=== PATIENT | male | born 1980 | race Caucasian/White ===

== ENCOUNTER 2022-06-25 09:40 | Inpatient (IN) | payer BC ==
--- NOTE | 2022-06-25 10:36 | ED ---
General Adult HPI - General Chief complaint: Dizziness Stated complaint: dizziness Time Seen by Provider: 06/25/22 09:45 Source: patient, RN notes reviewed, old records reviewed Mode of arrival: ambulatory Limitations: no limitations - History of Present Illness Initial comments: This is a 42-year-old male who presents emergency department with past medical history significant for recently diagnosed hypertension. Patient has had a 10 day history of feeling like a passout. Patient states it typically occurs with any exertion. Patient states that states last week off from work. Patient states this is his fourth visit to an ER and he seen his primary medical care doctor twice. Patient denies any chest pain shortness of breath or difficulty breathing. Patient has any new back pain. Patient states she doesn't chronic back pain. Patient states normally if he is up and working his back pain slowly gets better with movement throughout the day. Patient states the last week or so his been lying around because he hasn't been working in he doesn't loosen up so is been a little more annoying than normal. Patient states when he starts to exert himself or even walking around the store the day he began to feel lightheaded as if he was going to pass out. Patient states typically if he was out for a few hours he feels considerably better. Patient denies any recent fever chills or cough. Patient denies any abdominal pain. Patient states occasionally when he gets really lightheaded and almost passes out to get some tingling in both of his fingers. - Related Data Home Medications Medication Instructions Recorded Confirmed lisinopriL [Zestril] 10 mg PO DAILY 06/25/22 06/25/22 Allergies Allergy/AdvReac Type Severity Reaction Status Date / Time No Known Allergies Allergy Verified 06/25/22 11:54 Review of Systems ROS Statement: Those systems with pertinent positive or pertinent negative responses have been documented in the HPI. ROS Other: All systems not noted in ROS Statement are negative. Past Medical History Past Medical History: Hypertension History of Any Multi-Drug Resistant Organisms: None Reported Past Surgical History: Orthopedic Surgery Past Psychological History: No Psychological Hx Reported Smoking Status: Current every day smoker Past Alcohol Use History: Occasional Past Drug Use History: None Reported General Exam - General Exam Comments Initial Comments: GENERAL: Patient is well-developed and well-nourished. Patient is nontoxic and well- hydrated and is in mild distress. ENT: Neck is soft and supple. No significant lymphadenopathy is noted. Oropharynx is clear. Moist mucous membranes. Neck has full range of motion without eliciting any pain. EYES: The sclera were anicteric and conjunctiva were pink and moist. Patient has nystagmus but his sister states that he is always had that. Extraocular movements were intact and pupils were equal round and reactive to light. Eyelids were unremarkable. PULMONARY: Unlabored respirations. Good breath sounds bilaterally. No audible rales rhonchi or wheezing was noted. CARDIOVASCULAR: Patient is tachycardic at about 110 beats a minute ABDOMEN: Soft and nontender with normal bowel sounds. SKIN: Skin is clear with no lesions or rashes and otherwise unremarkable. NEUROLOGIC: Patient is alert and oriented x3. Cranial nerves II through XII are grossly intact. Motor and sensory are also intact. Normal speech, volume and content. Symmetrical smile. MUSCULOSKELETAL: Normal extremities with adequate strength and full range of motion. LYMPHATICS: No significant lymphadenopathy is noted PSYCHIATRIC: Normal psychiatric evaluation. Limitations: no limitations Course Vital Signs 06/25/22 06/25/22 09:44 11:41 Temperature 99 F Pulse Rate 100 101 H Respiratory 20 18 Rate Blood Pressure 141/95 O2 Sat by Pulse 98 95 Oximetry Medical Decision Making - Medical Decision Making EKG shows sinus rhythm at 94 bpm MI interval 152 QRS is 82 QT interval 370 QTC is 369. Patient's EKG shows no ST segment elevation or depression. Echo showed no acute abnormality. CT of the chest showed no acute abnormality. This is the patient's fourth visit to an emergency Department in [facility] twice in his primary medical care doctor he just wants to get this problem is also get back to work. Patient states he can't go back to work as every time he gets up and exerts himself well he almost passes out. Was at this point time I did. To admit the patient and get a further workup. I spoke with the patient was given hospital stay agreed to admit the patient admitted the patient wrote admitting orders. - Lab Data Result diagrams: 06/25/22 10:52 06/25/22 10:52 Lab Results 06/25/22 06/25/22 06/25/22 Range/Units 10:52 10:52 10:52 WBC 10.7 H (3.8-10.6) k/uL RBC 5.22 (4.30-5.90) m/uL Hgb 17.1 (13.0-17.5) gm/dL Hct 49.8 (39.0-53.0) % MCV 95.3 (80.0-100.0) fL MCH 32.7 (25.0-35.0) pg MCHC 34.3 (31.0-37.0) g/dL RDW 11.5 (11.5-15.5) % Plt Count 307 (150-450) k/uL MPV 8.1 Neutrophils % 77 % Lymphocytes % 15 % Monocytes % 6 % Eosinophils % 1 % Basophils % 0 % Neutrophils # 8.2 H (1.3-7.7) k/uL Lymphocytes # 1.5 (1.0-4.8) k/uL Monocytes # 0.6 (0-1.0) k/uL Eosinophils # 0.1 (0-0.7) k/uL Basophils # 0.0 (0-0.2) k/uL PT 9.4 (9.0-12.0) sec INR 0.8 (<1.2) APTT 24.9 (22.0-30.0) sec D-Dimer 0.68 H (<0.60) mg/L FEU Sodium 135 L (137-145) mmol/L Potassium 5.3 H (3.5-5.1) mmol/L Chloride 97 L (98-107) mmol/L Carbon Dioxide 25 (22-30) mmol/L Anion Gap 13 mmol/L BUN 12 (9-20) mg/dL Creatinine 0.65 L (0.66-1.25) mg/dL Est GFR (CKD-EPI)AfAm >90 (>60 ml/min/1.73 sqM) Est GFR (CKD-EPI)NonAf >90 (>60 ml/min/1.73 sqM) Glucose 96 (74-99) mg/dL Calcium 9.7 (8.4-10.2) mg/dL Magnesium 2.0 (1.6-2.3) mg/dL Total Bilirubin 0.6 (0.2-1.3) mg/dL AST 24 (17-59) U/L ALT 26 (4-49) U/L Alkaline Phosphatase 106 (38-126) U/L Troponin I (0.000-0.034) ng/mL NT-Pro-B Natriuret Pep pg/mL Total Protein 8.1 (6.3-8.2) g/dL Albumin 4.7 (3.5-5.0) g/dL 06/25/22 06/25/22 Range/Units 10:52 10:52 WBC (3.8-10.6) k/uL RBC (4.30-5.90) m/uL Hgb (13.0-17.5) gm/dL Hct (39.0-53.0) % MCV (80.0-100.0) fL MCH (25.0-35.0) pg MCHC (31.0-37.0) g/dL RDW (11.5-15.5) % Plt Count (150-450) k/uL MPV Neutrophils % % Lymphocytes % % Monocytes % % Eosinophils % % Basophils % % Neutrophils # (1.3-7.7) k/uL Lymphocytes # (1.0-4.8) k/uL Monocytes # (0-1.0) k/uL Eosinophils # (0-0.7) k/uL Basophils # (0-0.2) k/uL PT (9.0-12.0) sec INR (<1.2) APTT (22.0-30.0) sec D-Dimer (<0.60) mg/L FEU Sodium (137-145) mmol/L Potassium (3.5-5.1) mmol/L Chloride (98-107) mmol/L Carbon Dioxide (22-30) mmol/L Anion Gap mmol/L BUN (9-20) mg/dL Creatinine (0.66-1.25) mg/dL Est GFR (CKD-EPI)AfAm (>60 ml/min/1.73 sqM) Est GFR (CKD-EPI)NonAf (>60 ml/min/1.73 sqM) Glucose (74-99) mg/dL Calcium (8.4-10.2) mg/dL Magnesium (1.6-2.3) mg/dL Total Bilirubin (0.2-1.3) mg/dL AST (17-59) U/L ALT (4-49) U/L Alkaline Phosphatase (38-126) U/L Troponin I <0.012 (0.000-0.034) ng/mL NT-Pro-B Natriuret Pep <11 pg/mL Total Protein (6.3-8.2) g/dL Albumin (3.5-5.0) g/dL Disposition Clinical Impression: Near syncope Disposition: ADMITTED IP TO THIS HOSP Referrals: Jose F Vick MD [Primary Care Provider] - 1-2 days Time of Disposition: 13:59
[2022-06-25 11:01] LABS: Basophils % (A) 0 %; Eosinophils # (A) 0.1 k/uL (0-0.7); Eosinophils % (A) 1 %; HCT 49.8 % (39.0-53.0); HGB 17.1 gm/dL (13.0-17.5); Lymphocytes # (A) 1.5 k/uL (1.0-4.8); Lymphocytes % (A) 15 %; MCH 32.7 pg (25.0-35.0); MCHC 34.3 g/dL (31.0-37.0); MCV 95.3 fL (80.0-100.0); Mean Platelet Volume 8.1; Monocytes # (A) 0.6 k/uL (0-1.0); Monocytes % (A) 6 %; Neutrophils # (A) 8.2 k/uL (1.3-7.7); Neutrophils % (A) 77 %; Platelet Count 307 k/uL (150-450); RBC 5.22 m/uL (4.30-5.90); RDW 11.5 % (11.5-15.5); WBC 10.7 k/uL (3.8-10.6)
[2022-06-25 11:14] LABS: ALT 26 U/L (4-49); AST 24 U/L (17-59); African American GFR (CKD) >90 (>60 ml/min/1.73 sqM); Albumin 4.7 g/dL (3.5-5.0); Alkaline Phosphatase 106 U/L (38-126); Anion Gap 13 mmol/L; Blood Urea Nitrogen 12 mg/dL (9-20); Calcium 9.7 mg/dL (8.4-10.2); Carbon Dioxide 25 mmol/L (22-30); Chloride 97 mmol/L (98-107); Glucose 96 mg/dL (74-99); Non-African American GFR(CKD) >90 (>60 ml/min/1.73 sqM); Potassium 5.3 mmol/L (3.5-5.1); Sodium 135 mmol/L (137-145); Total Bilirubin 0.6 mg/dL (0.2-1.3); Total Protein 8.1 g/dL (6.3-8.2)
[2022-06-25 11:16] LABS: INR 0.8 (<1.2); Partial Thromboplastin Time 24.9 sec (22.0-30.0); Prothrombin Time 9.4 sec (9.0-12.0)
--- NOTE | 2022-06-25 11:19 | XR ---
EXAMINATION TYPE: XR chest 2V DATE OF EXAM: 06/25/2022 COMPARISON: NONE HISTORY: Chest pain TECHNIQUE: Frontal and lateral views of the chest are obtained. FINDINGS: There is no focal air space opacity. No evidence for pneumothorax. No pleural effusion. The cardiac silhouette size is within normal limits. The osseous structures are grossly intact. IMPRESSION: 1. No acute cardiopulmonary process.
--- NOTE | 2022-06-25 12:37 | CT ---
EXAMINATION TYPE: CT chest angio for PE DATE OF EXAM: 06/25/2022 COMPARISON: None HISTORY: Near syncope, dizziness CT DLP: 393 mGycm CONTRAST: CT chest with contrast and 3D reconstruction with MIP imaging is performed with IV Contrast, patient injected with 100 mL of Isovue 370. Contrast-enhanced CT of the chest was performed through the course of the pulmonary arteries with maryse g and mediastinal window settings submitted. 3D reconstruction with MIP imaging was also performed. PULMONARY ARTERIES: The pulmonary arteries and their major tributaries are patent. I do not see maribell dence for sizable filling defect to suggest pulmonary embolic process. LUNGS: The lungs are clear and free of infiltrate. No evidence for atelectasis. No pulmonary nodule or mass is detected. No pleural effusion. MEDIASTINUM: Thoracic aorta is of normal caliber. The heart is mildly enlarged. No evidence for med iastinal mass. No mediastinal lymph nodes greater than 1cm. HILAR STRUCTURES: No evidence for mass. No hilar lymph nodes greater than 1 cm. UPPER ABDOMEN: No significant abnormality is seen. IMPRESSION: 1. No evidence for Pulmonary embolism at this time.
[2022-06-25] MEDS ORDERED: SODIUM CHLORIDE 0.9% 1,000 ML IV ONE (13:59)
--- NOTE | 2022-06-25 14:28 | P.HPIM ---
History of Present Illness Patient is a pleasant 42-year-old male came in with complaints of dizziness which is lightheadedness patient denied any room spinning. Patient had this lightheadedness on and off multiple episodes. Lightheadedness is not affected b y position change but whenever he is lightheaded when he rests for 2 hours patient gets better. Patient the started having these symptoms 10 days ago had multiple ER visits and had no significant improvement. Echocardiogram was ordered patient is being admitted to [facility] floor patient had a CT angios the chest which did not show any significant abnormality. Patient denied any shortness of breath patient was also complaining of tingling numbness in both hands as well as tingling in the right foot the symptoms started before his lightheadedness. Patient denied any focal weakness. Patient is complaining of chronic back pain which is bit worse than usual patient was also complaining of neck pain. Patient is concerned that his dizziness is limiting his regular work and his usual regular activities. Patient was started on lisinopril about 4 days ago because of uncontrolled hypertension patient has mildly elevated potassium to 5.3. REVIEW OF SYSTEMS: CONSTITUTIONAL: No fever, no malaise, no fatigue. HEENT: No recent visual problems or hearing problems. Denied any sore throat. CARDIOVASCULAR: No chest pain, orthopnea, PND, no palpitations, no syncope. PULMONARY: No shortness of breath, no cough, no hemoptysis. GASTROINTESTINAL: No diarrhea, no nausea, no vomiting, no abdominal pain. NEUROLOGICAL: No headaches, no weakness, no numbness. HEMATOLOGICAL: Denies any bleeding or petechiae. GENITOURINARY: Denies any burning micturition, frequency, or urgency. MUSCULOSKELETAL/RHEUMATOLOGICAL: Denies any joint pain, swelling, or any muscle pain. ENDOCRINE: Denies any polyuria or polydipsia. The rest of the 14-point review of systems is negative. PHYSICAL EXAMINATION: GENERAL: The patient is alert and oriented x3, not in any acute distress. Well developed, well nourished. HEENT: Pupils are round and equally reacting to light. EOMI. No scleral icterus. No conjunctival pallor. Normocephalic, atraumatic. No pharyngeal erythema. No thyromegaly. CARDIOVASCULAR: S1 and S2 present. No murmurs, rubs, or gallops. PULMONARY: Chest is clear to auscultation, no wheezing or crackles. ABDOMEN: Soft, nontender, nondistended, normoactive bowel sounds. No palpable organomegaly. MUSCULOSKELETAL: No joint swelling or deformity. EXTREMITIES: No cyanosis, clubbing, or pedal edema. Patient has deformity of the right leg secondary to an accident when he was a kid. NEUROLOGICAL: Gross neurological examination did not reveal any focal deficits. SKIN: No rashes. Assessment and plan -Dizziness/lightheadedness patient will undergo workup with echocardiogram we'll [place] in a carotid Doppler can be related to cervical degenerative disc disease because of which I'll obtain x-ray of the neck considering his symptoms of low back pain and tingling in the right foot I'll also obtain x-ray of lower back. As per request from my patient and family will consult neurology and cardiology. Patient will be monitored on [facility]. -Hypertension -Chronic low back pain, cervical as well as thoracolumbar back pain with some radicular symptoms. Physical therapy activation therapy consultation pain medications. -Nicotine use: Counseling was provided DVT prophylaxis: Lovenox Past Medical History Past Medical History: Hypertension History of Any Multi-Drug Resistant Organisms: None Reported Past Surgical History: Orthopedic Surgery Past Psychological History: No Psychological Hx Reported Smoking Status: Current every day smoker Past Alcohol Use History: Occasional Past Drug Use History: None Reported Medications and Allergies Home Medications Medication Instructions Recorded Confirmed Type lisinopriL [Zestril] 10 mg PO DAILY 06/25/22 06/25/22 History Allergies Allergy/AdvReac Type Severity Reaction Status Date / Time No Known Allergies Allergy Verified 06/25/22 11:54 Physical Exam Vitals: Vital Signs Temp Pulse Resp BP Pulse Ox 06/25/22 14:00 100 18 120/81 97 06/25/22 12:00 101 H 18 125/84 97 06/25/22 11:41 101 H 18 95 06/25/22 09:44 99 F 100 20 141/95 98 Intake and Output 06/24/22 06/25/22 06/25/22 22:59 06:59 14:59 Other: Weight 86.183 kg Results CBC & Chem 7: 06/25/22 10:52 06/25/22 10:52 Labs: Abnormal Lab Results - Last 24 Hours (Table) 10/24/22 10/24/22 10/24/22 Range/Units 10:52 10:52 10:52 WBC 10.7 H (3.8-10.6) k/uL Neutrophils # 8.2 H (1.3-7.7) k/uL D-Dimer 0.68 H (<0.60) mg/L FEU Sodium 135 L (137-145) mmol/L Potassium 5.3 H (3.5-5.1) mmol/L Chloride 97 L (98-107) mmol/L Creatinine 0.65 L (0.66-1.25) mg/dL
[2022-06-25] MEDS: HYDROmorphone 0.5 MG/0.5 ML SYRINGE IVP PRN ×2 (14:39→23:34)
--- NOTE | 2022-06-25 15:19 | XR ---
EXAMINATION TYPE: XR lumbar spine 2 or 3V DATE OF EXAM: 06/25/2022 3:01 PM INDICATION: Patient age:Male; 42 years old; Reason for study: Low back pain; COMPARISON: None TECHNIQUE: Frontal, lateral and coned in L5-S1 lateral views of the spine. FINDINGS: There is grade 1 borderline grade 2 anterolisthesis of L5 on S1. Suspected bilateral spondy lolysis. Mild osteophyte formation at throughout the spine. No evidence of any acute osseous patholog y. No evidence of loss of vertebral body height is seen. No significant degeneration changes through out the spine. IMPRESSION: 1. No acute fracture. 2. Minimal degeneration changes of the spine with grade 1, borderline grade 2 anterolisthesis of L5 on S1. There are suspected spondylolysis.
--- NOTE | 2022-06-25 15:23 | XR ---
EXAMINATION TYPE: XR cervical spine w flex/ext DATE OF EXAM: 06/25/2022 TECHNIQUE: Frontal, lateral, oblique, swimmers, and open mouth view of the cervical spine are obtaine d. Extension into flexion views are obtained. HISTORY: Neck pain COMPARISON: None FINDINGS: The cervical spine is visualized in its entirety from C1 thru the top of T1 level, it is s atisfactory in alignment without evidence of acute fracture or dislocation. There is normal alignmen t at flexion and extension. The pre-vertebral soft tissue appears within normal limits. The C1-C2 ar ticulation is within normal limits on the open mouth view. The oblique images are within normal limi ts. IMPRESSION: No acute fracture or dislocation is seen in the cervical spine.
--- NOTE | 2022-06-25 15:55 | US ---
EXAMINATION TYPE: US carotid duplex BILAT DATE OF EXAM: 06/25/2022 COMPARISON: NONE CLINICAL HISTORY: CVA. dizziness. No hx tia. Patient states being on HTN meds x 3 days. TECHNIQUE: Carotid duplex ultrasound examination. Indirect Doppler criteria was utilized. FINDINGS: EXAM MEASUREMENTS: RIGHT: Peak Systolic Velocity (PSV) cm/sec ----- Right CCA: 92.9 ----- Right ICA: 95.8 ----- Right ECA: 84.2 ICA/CCA ratio: 1.0 RIGHT: End Diastole cm/sec ----- Right CCA: 17.3 ----- Right ICA: 14.4 ----- Right ECA: 14.4 LEFT: Peak Systolic Velocity (PSV) cm/sec ----- Left CCA: 96.8 ----- Left ICA: 95.6 ----- Left ECA: 125.8 ICA/CCA ratio: 1.0 LEFT: End Diastole cm/sec ----- Left CCA: 22.5 ----- Left ICA: 34.8 ----- Left ECA: 17.6 VERTEBRALS (direction of flow): Right Vertebral: Antegrade Left Vertebral: Antegrade Rhythm: Normal RAIL TRANSPORTATION TABELER NOTES: No significant velocity elevations, plaque or stenosis. IMPRESSION: Less than 50% stenosis of the bilateral carotid bifurcations. Criteria for Assigning % of Stenosis / Diameter reduction (Estimation based on the indirect measurements of the internal carotid artery velocities (ICA PSV). 1. Normal (no stenosis)=ICA PSV < 125 cm/s: ratio < 2.0: ICA EDV<40 cm/s. 2. Less than 50% stenosis=ICA PSV < 125 cm/s: ratio < 2.0: ICA EDV<40 cm/s. 3. 50 to 69% stenosis=ICA PSV of 125 to 230 cm/s: ration 2.0 ? 4.0: ICA EDV 40-100 cm/s. 4. Greater than 70% stenosis to near occlusion= ICA PSV > 230 cm/s: ratio > 4.0: ICA EDV > 100 cm/s. 5. Near occlusion= ICA PSV velocities may be low or undetectable: variable ratio and ICA EDV. 6. Total occlusion=unable to detect flow.
--- NOTE | 2022-06-25 16:21 | P.CNNES ---
History of Present Illness Consult date: 06/25/22 Requesting physician: Ro Lenz Reason for Consult: dizziness History of Present Illness: This is a 6-year-old gentleman with history of hypertension presented emergency department because of episode of feeling lightheaded, numbness. Patient is accompanied with his sister who provided some of the history. It seems for the last 10 days patient is a having recurrent episode of he describes his head feels somewhat off then he feels lightheaded that he noticed numbness in both hands left hand more than the right and numbness in the right leg then he feels he is having this anxious at tremor but denies any jerk in or tonic-clonic activity that he feels off and for the most part he that it subsides after the him going to sleep. He denies any loss of consciousness, urinary bowel incontinence. He feels like he is about to pass out with these episodes. These episodes happened after prolonged period of walk-in and denies that happened from sitting to standing position right away. He has minimal episodes that he felt lightheaded going from sitting to standing before the most part those episodes happened after prolonged walking. According to the patient and sister wall that taking care of his bills about 34 days ago he fell off and not himself and heme head to the blink his eyes multiple times since he felt his eyes were dry. Patient was invalid by 2 different hospitals one of him was [facility] in [place] and another was [facility]. He had CT head which but was told everything looked normal. He denies any history of seizure. Denies any focal weakness, numbness. He has ongoing lower back pain. Of note patient drinks about 6-8 cans of beers 12 ounces daily. He smokes about close to 2 packs and that would last an entire week. Denies any illicit drug use. He denies any history of seizures or family history of seizures. Review of Systems Review of system: The 12 point system was reviewed and apparent positive and negative per HPI. Past Medical History Past Medical History: Hypertension History of Any Multi-Drug Resistant Organisms: None Reported Past Surgical History: Orthopedic Surgery Past Psychological History: No Psychological Hx Reported Smoking Status: Current every day smoker Past Alcohol Use History: Occasional Past Drug Use History: None Reported Medications and Allergies Home Medications Medication Instructions Recorded Confirmed Type lisinopriL [Zestril] 10 mg PO DAILY 06/25/22 06/25/22 History Allergies Allergy/AdvReac Type Severity Reaction Status Date / Time No Known Allergies Allergy Verified 06/25/22 11:54 Physical Examination - Vital Signs Vital Signs: Vital Signs Temp Pulse Resp BP Pulse Ox 06/25/22 14:00 100 18 120/81 97 06/25/22 12:00 101 H 18 125/84 97 06/25/22 11:41 101 H 18 95 06/25/22 09:44 99 F 100 20 141/95 98 Intake and Output 06/25/22 06/25/22 06/25/22 06:59 14:59 22:59 Other: Weight 86.183 kg GENERAL: The patient is lying in bed and is not in acute distress. CHEST: The heart rate is regular rate rhythm. No murmurs to auscultation. LUNG: Clear to auscultation bilaterally no wheezing noted throughout. Not labored breathing. ABDOMEN/GI: Bowel sounds present in all 4 quadrants. No tenderness to palpation throughout. NEUROLOGICAL: Higher mental function: The patient is awake, alert, oriented to self, place and time. Patient is following commands. No aphasia and no neglect. Cranial nerves: The pupils are round, equal and reactive to light and accommodation. Visual headley are full to confrontation throughout. Extraocular movement is rotatory nystagmus looking to right and left (old and was told due to eye issue). Facial sensation is normal to touch throughout. The facial strength is normal throughout. Hearing is normal bilaterally to hand rub. Tongue is midline and moved [id number] without any difficulty. No dysarthria is noted. Shoulder shrug is normal bilaterally. Motor: The strength is 5 over 5 throughout. Normal tone and bulk. 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 Cerebellum: Normal finger to nose bilaterally. Sensation: Sensation is normal to touch throughout. Reflexes (right/left) 1+ uppers while lowers are 2+. Plantars is mute over the left and right toe is amputated. Results - Laboratory Findings CBC and BMP: 06/25/22 10:52 06/25/22 10:52 Abnormal Lab Findings: Abnormal Labs 06/25/22 06/25/22 06/25/22 10:52 10:52 10:52 WBC 10.7 H Neutrophils # 8.2 H D-Dimer 0.68 H Sodium 135 L Potassium 5.3 H Chloride 97 L Creatinine 0.65 L Assessment and Plan Assessment: Recurrent transient episodes of feeling lightheadedness, numbness of both hands left more than right, right foot numbness and feeling off for the past 10 days: Unknown exact etiology. Rule out ?underlying seizure. Hypertension Alcohol use (drinks 6-8 beers daily) Tobacco use Plan: I ordered routine EEG. Ordered MRI Brain w/ and w/o (has metal in left leg, so unsure if will be completed). If not will repeat CT head (had at different facilities). Carotid duplex, Echo and orthostatic vitals are ordered by primary and ED team. Cardiology team is consulted. If all work-up is negative and patient continues to have symptoms then recommend prolonged ambulatory EEG or even epilepsy monitoring unit to capture episodes to rule out possible underlying seizure. Patient was counseled on alcohol and tobacco cessation. Started on thiamine 100mg daily and folic acid 1mg daily because of his alcohol use. Will defer the rest of medical management to primary team. Recommend patient to follow-up with neurologist as outpatient within 1-2 weeks as outpatient. The plan is discussed with patient and his sister (who is at bedside). Thank you for the consultation. Jose Cruz M.D. Neuro-Hospitalist Time with Patient: Greater than 30
[2022-06-25] MEDS: THIAMINE 100 MG TAB PO SCH (17:11)
--- NOTE | 2022-06-25 18:06 | CA ---
Transthoracic Echo Report Name: Luis Higginbotham Age: 42 Gender: M : 1980 Exam Date: 06/25/2022 11:47 Exam Location: [facility] Ht (in): 64 Wt (lb): 190 Ordering Physician: Sean Curtis MD Attending/Referring Phys: Window Cutter Kianna Batista RDCS Procedure CPT: Indications: near syncope Cardiac Hx: Technical Quality: Good Contrast 1: Total Dose (mL): Contrast 2: Total Dose (mL): MEASUREMENTS (Male / Female) Normal Values 2D ECHO LV Diastolic Diameter PLAX 4.1 cm 4.2 - 5.9 / 3.9 - 5.3 cm LV Systolic Diameter PLAX 2.8 cm IVS Diastolic Thickness 1.0 cm 0.6 - 1.0 / 0.6 - 0.9 cm LVPW Diastolic Thickness 1.0 cm 0.6 - 1.0 / 0.6 - 0.9 cm LV Relative Wall Thickness 0.5 RV Internal Dim ED PLAX 3.1 cm LA Systolic Diameter LX 3.2 cm 3.0 - 4.0 / 2.7 - 3.8 cm LA Volume 53.8 cm??? 18 - 58 / 22 - 52 cm??? M-MODE Aortic Root Diameter MM 3.7 cm MV E Point Septal Separation 0.5 cm AV Cusp Separation MM 2.5 cm DOPPLER AV Peak Velocity 129.8 cm/s AV Peak Gradient 6.7 mmHg MV Area PHT 3.1 cm??? Mitral E Point Velocity 71.2 cm/s Mitral A Point Velocity 78.5 cm/s Mitral E to A Ratio 0.9 MV Deceleration Time 248.5 ms MV E' Velocity 9.4 cm/s Mitral E to MV E' Ratio 7.6 TR Peak Velocity 234.2 cm/s TR Peak Gradient 21.9 mmHg Right Ventricular Systolic Press 26.9 mmHg FINDINGS Left Ventricle Left ventricular ejection fraction is estimated at 60-65 %. Left ventricular cavity size at the upper limits of normal. Left ventricular wall thickness normal. Right Ventricle Normal right ventricular size and function. Right ventricular systolic pressure within normal limits. Right Atrium Normal right atrial size. Left Atrium Normal left atrial size. No evidence for an atrial septal defect. Mitral Valve Structurally normal mitral valve. No mitral stenosis, regurgitation or prolapse. Aortic Valve Trileaflet aortic valve. No aortic valve stenosis or regurgitation. Tricuspid Valve Mild tricuspid regurgitation. Pulmonic Valve Structurally normal pulmonic valve. Pericardium Normal pericardium. No pericardial effusion. Aorta Normal size aortic root and proximal ascending aorta. CONCLUSIONS Preserved LV systolic function Previewed by: Dr. Kai Aguilera MD (Electronically Signed) Final Date: 25 June 2022 18:04
[2022-06-25] MEDS ORDERED: KETOROLAC 15 MG/ML 1 ML VIAL IVP PRN (18:36)
[2022-06-25] MEDS: PANTOPRAZOLE 40 MG TABLET PO SCH (23:34)
[2022-06-26] MEDS: FOLIC ACID 1 MG TAB PO SCH (07:35)
[2022-06-26] MEDS: PANTOPRAZOLE 40 MG TABLET PO SCH ×2 (07:35→20:17)
[2022-06-26] MEDS: THIAMINE 100 MG TAB PO SCH (07:35)
[2022-06-26] MEDS: HYDROmorphone 0.5 MG/0.5 ML SYRINGE IVP PRN ×2 (07:40→18:01)
[2022-06-26] MEDS ORDERED: SODIUM CHLORIDE 0.9% 1,000 ML IV SCH (09:45)
--- NOTE | 2022-06-26 11:30 | P.CRDCN ---
History of Present Illness History of present illness: HISTORY OF PRESENT ILLNESS: This is a 42-year-old male with a past medical history significant for hypertension. 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 We have been asked to see the patient in consultation for near syncope. Patient examined at the bedside. Patient reports about 10 days ago he started having feelings of dizziness and lightheadedness. He states after he begins to feel dizzy that his right foot starts going numb. He reports that his hands get shaky and they feel cold and sweaty. He reports his hands then begin to feel tingly and states his left hand is usually worse than his right hand. He states he keeps working his symptoms will get worse. He reports if he lays down than his symptoms usually get better. He reports these episodes have been lasting for 2-3 hours. He states the first time this happened he took himself to the ground because he felt as though he was going to pass out. He reports he has never had an actual syncopal episode. * EKG reveals sinus mechanism with no signs of acute ischemia * Chest xray negative for acute process * Chest CTA negative for PE * Laboratory data: WBC 10.7. Hemoglobin 17.1. Platelet count 307. D-dimer 0.68. Sodium 135. Potassium 5.3. BUN 12. Creatinine 0.65. ProBNP 11. Troponin negative 1. * Current home cardiac medications include lisinopril 10 mg daily * Echocardiogram obtained revealing ejection fraction 60-65% with mild TR REVIEW OF SYSTEMS: At the time of my exam: CONSTITUTIONAL: Denies fever or chills. HEENT: Denies blurred vision, vision changes, or eye pain. Denies hemoptysis CARDIOVASCULAR: Denies chest pain. Denies orthopnea. Denies PND. Denies palpitations RESPIRATORY: Denies shortness of breath. GASTROINTESTINAL: Denies abdominal pain. Denies nausea or vomiting. HEMATOLOGIC: Denies bleeding disorders. GENITOURINARY: Denies any blood in urine. SKIN: Denies pruitis. Denies rash. PHYSICAL EXAM: VITAL SIGNS: Reviewed. GENERAL: Well-developed in no acute distress. HEENT: Head is normocephalic. Pupils are equal, round. Sclerae anicteric. Mucous membranes of the mouth are moist. Neck supple. No JVD or thyromegaly LUNGS: Respirations even and unlabored. Lungs essentially clear to auscultation bilaterally. HEART: Regular rate and rhythm. S1 and S2 heard. ABDOMEN: Soft. Nondistended. Nontender. EXTREMITIES: Normal range of motion. No clubbing or cyanosis. Peripheral pulses intact. No lower extremity edema NEUROLOGIC: Awake and alert. Oriented x 3. ASSESSMENT: Near syncope Hypertension Hyperkalemia Daily alcohol use Nicotine dependence PLAN: Recommend abstinence from alcohol Smoking cessation recommended Continue to monitor blood pressure Patient to undergo tilt table testing today Further recommendations pending patient's course Nurse practitioner note has been reviewed by physician. Signing provider agrees with the documented findings, assessment, and plan of care. Past Medical History Past Medical History: Hypertension History of Any Multi-Drug Resistant Organisms: None Reported Past Surgical History: Orthopedic Surgery Past Psychological History: No Psychological Hx Reported Smoking Status: Current some day smoker Past Alcohol Use History: Occasional Past Drug Use History: None Reported Medications and Allergies Home Medications Medication Instructions Recorded Confirmed Type lisinopriL [Zestril] 10 mg PO DAILY 06/25/22 06/25/22 History Allergies Allergy/AdvReac Type Severity Reaction Status Date / Time No Known Allergies Allergy Verified 06/25/22 11:54 Physical Exam Vitals: Vital Signs Temp Pulse Pulse Resp BP BP Pulse Ox 06/26/22 08:00 97.4 F L 78 16 123/77 97 06/26/22 07:30 78 06/26/22 02:00 98.1 F 78 16 111/72 96 06/25/22 23:36 79 17 06/25/22 23:16 98.5 F 79 17 125/80 97 06/25/22 18:27 87 18 127/82 96 06/25/22 17:00 106 H 18 130/86 97 06/25/22 16:00 102 H 18 126/80 97 06/25/22 14:00 100 18 120/81 97 06/25/22 12:00 101 H 18 125/84 97 06/25/22 11:41 101 H 18 95 06/25/22 09:44 99 F 100 20 141/95 98 Intake and Output 06/25/22 06/26/22 06/26/22 22:59 06:59 14:59 Intake Total 450 Balance 450 Intake: Intake, IV Titration 450 Amount Sodium Chloride 0.9% 1, 450 000 ml @ 75 mls/hr IV . [id number] ONE Rx#:[id number] Other: Voiding Method Toilet Weight 85.3 kg Results 06/25/22 10:52 06/25/22 10:52 Cardiac Enzymes 06/25/22 06/25/22 Range/Units 10:52 10:52 AST 24 (17-59) U/L Troponin I <0.012 (0.000-0.034) ng/mL Coagulation 06/25/22 Range/Units 10:52 PT 9.4 (9.0-12.0) sec APTT 24.9 (22.0-30.0) sec CBC 06/25/22 Range/Units 10:52 WBC 10.7 H (3.8-10.6) k/uL RBC 5.22 (4.30-5.90) m/uL Hgb 17.1 (13.0-17.5) gm/dL Hct 49.8 (39.0-53.0) % Plt Count 307 (150-450) k/uL Comprehensive Metabolic Panel 06/25/22 Range/Units 10:52 Sodium 135 L (137-145) mmol/L Potassium 5.3 H (3.5-5.1) mmol/L Chloride 97 L (98-107) mmol/L Carbon Dioxide 25 (22-30) mmol/L BUN 12 (9-20) mg/dL Creatinine 0.65 L (0.66-1.25) mg/dL Glucose 96 (74-99) mg/dL Calcium 9.7 (8.4-10.2) mg/dL AST 24 (17-59) U/L ALT 26 (4-49) U/L Alkaline Phosphatase 106 (38-126) U/L Total Protein 8.1 (6.3-8.2) g/dL Albumin 4.7 (3.5-5.0) g/dL Current Medications Generic Name Dose Route Start Last Admin Trade Name Freq PRN Reason Stop Dose Admin Folic Acid 1 mg 06/26/22 09:00 06/26/22 07:35 Folic Acid 1 Mg Tab PO 1 mg DAILY ZANE Administration Hydromorphone HCl 0.5 mg 06/25/22 14:24 06/26/22 07:40 Hydromorphone 0.5 Mg/0.5 Ml Syringe IVP 0.5 mg Q6HR PRN Administration Pain Ketorolac Tromethamine 15 mg 06/25/22 18:36 06/25/22 18:40 Ketorolac 15 Mg/Ml 1 Ml Vial IVP 06/28/22 18:36 15 mg Q6HR PRN Administration Mild to Moderate Pain Pantoprazole Sodium 40 mg 06/25/22 21:00 06/26/22 07:35 Pantoprazole 40 Mg Tablet PO 40 mg BID ZANE Administration Thiamine HCl 100 mg 06/25/22 16:15 06/26/22 07:35 Thiamine 100 Mg Tab PO 100 mg DAILY ZANE Administration Intake and Output 06/25/22 06/26/22 06/26/22 22:59 06:59 14:59 Intake Total 450 Balance 450 Intake: Intake, IV Titration 450 Amount Sodium Chloride 0.9% 1, 450 000 ml @ 75 mls/hr IV . [id number] ONE Rx#:[id number] Other: Voiding Method Toilet Weight 85.3 kg 06/25/22 10:52 06/25/22 10:52
[2022-06-26 11:33] LABS: African American GFR (CKD) 129.5 (60.0-200.0); Anion Gap 6.5 mmol/L (10.00-18.00); BUN/Creat Ratio 16.88 Ratio (12.00-20.00); Blood Urea Nitrogen 13.5 mg/dL (9.0-27.0); Calcium 9.1 mg/dL (8.7-10.3); Carbon Dioxide 25.5 mmol/L (20.0-27.5); Non-African American GFR(CKD) 111.7 (60.0-200.0); Potassium 5.2 mmol/L (3.5-5.5)
--- NOTE | 2022-06-26 12:04 | P.PN ---
Subjective Progress Note Date: 06/26/22 The patient is seen at bedside and feels he is doing better since he has been in the hospital. Denies any further dizziness or presyncopal episodes or confusion. Denies any new neurological issues. Objective - Vital Signs Vital signs: Vital Signs Temp 97.4 F L 06/26/22 08:00 Pulse 78 06/26/22 08:00 Resp 16 06/26/22 08:00 BP 123/77 06/26/22 08:00 Pulse Ox 97 06/26/22 08:00 FiO2 Intake & Output 06/25/22 06/26/22 06/26/22 18:59 06:59 18:59 Intake Total 450 Balance 450 Weight 86.183 kg 85.3 kg Intake: Intake, IV Titration 450 Amount Sodium Chloride 0.9% 1, 450 000 ml @ 75 mls/hr IV . [id number] ONE Rx#:[id number] Other: Voiding Method Toilet # Voids 1 - Exam GENERAL: The patient is lying in bed and is not in acute distress. NEUROLOGICAL: Higher mental function: The patient is awake, alert, oriented to self, place and time. Patient is following commands. No aphasia and no neglect. Cranial nerves: The pupils are round, equal and reactive to light and accommodation. Visual headley are full to confrontation throughout. Extraocular movement is rotatory nystagmus looking to right and left (old and was told due to eye issue). Facial sensation is normal to touch throughout. The facial strength is normal throughout. Hearing is normal bilaterally to hand rub. Tongue is midline and moved [id number] without any difficulty. No dysarthria is noted. Shoulder shrug is normal bilaterally. Motor: The strength is 5 over 5 throughout. Normal tone and bulk. 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 Cerebellum: Normal finger to nose bilaterally. Sensation: Sensation is normal to touch throughout. Reflexes (right/left) 1+ uppers while lowers are 2+. Plantars is mute over the left and right toe is amputated. SOME OF THE WORK-UP DURING THIS HOSPITAL VISIT CONSISTED OF: Carotid duplex was reported as less than 50% stenosis of bilateral carotid bifurcation. 2-D echo was reported as preserved left ventricle systolic function. Ejection fraction of 66 5%. No evidence of left atrial septal defect. Normal left atrial size. - Labs CBC & Chem 7: 06/25/22 10:52 06/26/22 07:15 Labs: Abnormal Lab Results - Last 24 Hours (Table) 06/26/22 Range/Units 07:15 Anion Gap 6.50 L (10.00-18.00) mmol/L Assessment and Plan Assessment: Recurrent transient episodes of feeling lightheadedness, numbness of both hands left more than right, right foot numbness and feeling off for the past 10 days: Unknown exact etiology. Rule out ?underlying seizure. Hypertension Alcohol use (drinks 6-8 beers daily) Tobacco use Plan: Pending routine EEG to rule out any underlying seizure or discharges for his reported episodes of confusion.. Pending MRI Brain w/ and w/o (has metal in left leg, so unsure if will be completed). If not will repeat CT head (had at different facilities). Pending orthostatic vitals are ordered by primary and ED team. Cardiology team is consulted and planning for tilt table test. If all work-up is negative and patient continues to have symptoms then recommend prolonged ambulatory EEG or even epilepsy monitoring unit to capture episodes to rule out possible underlying seizure. Patient was counseled on alcohol and tobacco cessation. Started on thiamine 100mg daily and folic acid 1mg daily because of his alcohol use. Will defer the rest of medical management to primary team. Recommend patient to follow-up with neurologist as outpatient within 1-2 weeks as outpatient. The plan is discussed with patient and his nurse. Jose Cruz M.D. Neuro-Hospitalist Time with Patient: Less than 30
--- NOTE | 2022-06-26 15:10 | P.PN ---
Subjective Progress Note Date: 06/26/22 Patient is a pleasant 42-year-old male came in with complaints of dizziness which is lightheadedness patient denied any room spinning. Patient had this lightheadedness on and off multiple episodes. Lightheadedness is not affected by position change but whenever he is lightheaded when he rests for 2 hours patient gets better. Patient the started having these symptoms 10 days ago had multiple ER visits and had no significant improvement. Echocardiogram was ordered patient is being admitted to personnel monitor floor patient had a CT angios the chest which did not show any significant abnormality. Patient denied any shortness of breath patient was also complaining of tingling numbness in both hands as well as tingling in the right foot the symptoms started before his lightheadedness. Patient denied any focal weakness. Patient is complaining of chronic back pain which is bit worse than usual patient was also complaining of neck pain. Patient is concerned that his dizziness is limiting his regular work and his usual regular activities. Patient was started on lisinopril about 4 days ago because of uncontrolled hypertension patient has mildly elevated potassium to 5.3. 06/26/2022 Patient is seen and evaluated and follow-up with neurology following scheduled to undergo MRI and EEG. Plan is for tilt table test per cardiology with cardiology following closely. Recommend orthostatics and close monitoring for any signs of withdrawal. Patient reports he does drink 6-8 beers daily and will add CIWA protocol if needed. Patient currently not withdrawing. Patient with reports of dizziness that he feels is improved and has been up and walking around the room. Patient is tolerating diet with no reports of nausea or vomiting noted. Will await tilt table report. Patient initially scheduled for MRI although there is metal noted in the left leg and further investigation being done by radiology. Possible MRI this afternoon. Patient is afebrile and current orthostatics are negative. Patient denies any chest pain or palpitations. Blood pressure medication currently on hold. Review of systems: Constitutional: No reports of fatigue, fever, or chills Cardiovascular: No reports of chest pain or palpitations Respiratory: No reports of shortness of breath or cough GI: No reports of nausea, vomiting, or diarrhea : No reports of dysuria or retention Neurovascular: No reports of weakness or numbness All medications have been reviewed Active Medications Folic Acid (Folic Acid 1 Mg Tab) 1 mg PO DAILY ZANE Last Admin: 06/26/22 07:35 Dose: 1 mg Hydromorphone HCl (Hydromorphone 0.5 Mg/0.5 Ml Syringe) 0.5 mg IVP Q6HR PRN PRN Reason: Pain Last Admin: 06/26/22 07:40 Dose: 0.5 mg Sodium Chloride (Saline 0.9%) 1,000 mls @ 20 mls/hr IV .Q24H [facility] Last Admin: 06/26/22 10:59 Dose: Not Given Ketorolac Tromethamine (Ketorolac 15 Mg/Ml 1 Ml Vial) 15 mg IVP Q6HR PRN PRN Reason: Mild to Moderate Pain Stop: 06/28/22 18:36 Last Admin: 06/25/22 18:40 Dose: 15 mg Pantoprazole Sodium (Pantoprazole 40 Mg Tablet) 40 mg PO BID [facility] Last Admin: 06/26/22 07:35 Dose: 40 mg Thiamine HCl (Thiamine 100 Mg Tab) 100 mg PO DAILY [facility] Last Admin: 06/26/22 07:35 Dose: 100 mg PHYSICAL EXAMINATION: GENERAL: The patient is alert and oriented x3, not in any acute distress. Well developed, well nourished. HEENT: Pupils are round and equally reacting to light. EOMI. No scleral icterus. No conjunctival pallor. Normocephalic, atraumatic. No pharyngeal erythema. No thyromegaly. Strabismus noticed on exam CARDIOVASCULAR: S1 and S2 present. No murmurs, rubs, or gallops. PULMONARY: Chest is clear to auscultation, no wheezing or crackles. ABDOMEN: Soft, nontender, nondistended, normoactive bowel sounds. No palpable organomegaly. MUSCULOSKELETAL: No joint swelling or deformity. EXTREMITIES: No cyanosis, clubbing, or pedal edema. Patient has deformity of the right leg secondary to an accident when he was a kid. NEUROLOGICAL: Gross neurological examination did not reveal any focal deficits. SKIN: No rashes. Assessment: -Dizziness/lightheadedness can be related to cervical degenerative disc disease. patient currently undergoing neurological evaluation including MRI and EEG. Patient will be monitored on personnel monitor. -Hypertension -Chronic low back pain, cervical as well as thoracolumbar back pain with some radicular symptoms. -Nicotine use: Counseling was provided -History of daily EtOH use -DVT prophylaxis: Lovenox Plan: Patient is undergoing EEG and MRI of the brain with neurology following. Cardiology following as well the patient will undergo tilt table test today Patient does admit to drinking 6-8 beers daily although not currently withdrawing, recommendable closely monitor for any signs of alcohol withdrawal and will initiate CIWA protocol if necessary PT/OT therapy to follow Encouraged increased activity as tolerated Encouraged oral intake Currently holding lisinopril. Will follow-up with repeat labs in the a.m. and await reports The impression and plan of care has been dictated by Frances Sanchez, Nurse Practitioner as directed. Dr. Yoanna MD I have performed a history and examination and MDM of this patient, discussed the same with the dictator, and agree with the dictator's assessment and plan as written ,documented as a scribe. Based on total visit time, I have performed more than 50% of the visit. Objective - Vital Signs Vital signs: Vital Signs Temp 97.4 F L 06/26/22 08:00 Pulse 78 06/26/22 08:00 Resp 16 06/26/22 08:00 BP 123/77 06/26/22 08:00 Pulse Ox 97 06/26/22 08:00 FiO2 Intake & Output 06/25/22 06/26/22 06/26/22 18:59 06:59 18:59 Intake Total 450 Balance 450 Weight 86.183 kg 85.3 kg Intake: Intake, IV Titration 450 Amount Sodium Chloride 0.9% 1, 450 000 ml @ 75 mls/hr IV . [id number] ONE Rx#:[id number] Other: Voiding Method Toilet - Labs CBC & Chem 7: 06/25/22 10:52 06/26/22 07:15 Labs: Abnormal Lab Results - Last 24 Hours (Table) 06/25/22 06/25/22 06/25/22 Range/Units 10:52 10:52 10:52 WBC 10.7 H (3.8-10.6) k/uL Neutrophils # 8.2 H (1.3-7.7) k/uL D-Dimer 0.68 H (<0.60) mg/L FEU Sodium 135 L (137-145) mmol/L Potassium 5.3 H (3.5-5.1) mmol/L Chloride 97 L (98-107) mmol/L Creatinine 0.65 L (0.66-1.25) mg/dL
--- NOTE | 2022-06-26 16:50 | MR ---
EXAMINATION TYPE: MR brain wo/w con DATE OF EXAM: 06/26/2022 COMPARISON: None HISTORY: seizure. CONTRAST: Standard multiplanar, multisequence MRI departmental protocol images were obtained without contrast a nd with 8 mL intravenous Gadavist gadolinium contrast. Ventricles and sulci appear fairly normal. There is no mass effect or midline shift. No evidence of i ntracranial hemorrhage. Diffusion images show no sign of an acute infarct. Corpus callosum appears in tact. The brainstem is intact. Price-white matter structures have fairly normal signal pattern. No maribell dence of cerebral edema. Sella turcica appears normal. No evidence of sellar mass. There is normal enhancement of the venous sinuses. There is no pathologic enhancement. IMPRESSION: Normal MR scan of the brain.
[2022-06-27] MEDS: HYDROmorphone 0.5 MG/0.5 ML SYRINGE IVP PRN ×2 (00:10→08:05)
[2022-06-27 07:33] VITALS: BP 122/79; PULSE 85; RESP 18; TEMP 98
[2022-06-27] MEDS: THIAMINE 100 MG TAB PO SCH (08:05)
[2022-06-27] MEDS: FOLIC ACID 1 MG TAB PO SCH (08:05)
[2022-06-27] MEDS: PANTOPRAZOLE 40 MG TABLET PO SCH (08:05)
--- NOTE | 2022-06-27 09:32 | EEG ---
ELECTROENCEPHALOGRAM REPORT CLINICAL HISTORY: This is a 42-year-old gentleman with episodes of confusion. The video EEG is obtained to evaluate for seizure and epileptiform activity. RELEVANT MEDICATION: The patient is not on any antiepileptic drugs. EEG TYPE: A routine 21-channel EEG performed with video using the 10/20 electrode placement system. DESCRIPTION: Wakefulness is only obtained. During awake state, the posterior-dominant rhythm consists of [id number] voltage of 9.5 to 10 Hz activity that is well modulated and well sustained. There is no physiological sleep architecture seen. There is no focal slowing. INTERICTAL AND ICTAL: None. ACTIVATION PROCEDURE: Photic stimulation did not evoke a posterior driving response. There is no abnormality during the photic stimulation. Hyperventilation: There was no abnormality noted. CLINICAL INTERPRETATION: This is a normal routine EEG. There is no focal slowing, epileptiform discharge, or seizure on the EEG. Clinical correlation is recommended. HORACIO / CARLOS: [id number] / MTDDacia
--- NOTE | 2022-06-27 10:18 | P.PN ---
Subjective Progress Note Date: 06/27/22 HISTORY OF PRESENT ILLNESS: This is a 42-year-old male with a past medical history significant for hypertension. 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 We have been asked to see the patient in consultation for near syncope. Patient examined at the bedside. Patient reports about 10 days ago he started having feelings of dizziness and lightheadedness. He states after he begins to feel dizzy that his right foot starts going numb. He reports that his hands get shaky and they feel cold and sweaty. He reports his hands then begin to feel tingly and states his left hand is usually worse than his right hand. He states he keeps working his symptoms will get worse. He reports if he lays down than his symptoms usually get better. He reports these episodes have been lasting for 2-3 hours. He states the first time this happened he took himself to the ground because he felt as though he was going to pass out. He reports he has never had an actual syncopal episode. * EKG reveals sinus mechanism with no signs of acute ischemia * Chest xray negative for acute process * Chest CTA negative for PE * Laboratory data: WBC 10.7. Hemoglobin 17.1. Platelet count 307. D-dimer 0.68. Sodium 135. Potassium 5.3. BUN 12. Creatinine 0.65. ProBNP 11. Troponin negative 1. * Current home cardiac medications include lisinopril 10 mg daily * Echocardiogram obtained revealing ejection fraction 60-65% with mild TR 06/27/2022 Patient examined this morning at the bedside. Patient denies chest pain or pressure. Patient denies shortness of breath. He denies any further episodes of dizziness. Patient underwent tilt table testing yesterday which was neg ative. PHYSICAL EXAM: VITAL SIGNS: Reviewed. GENERAL: Well-developed in no acute distress. HEENT: Head is normocephalic. Pupils are equal, round. Sclerae anicteric. Mucous membranes of the mouth are moist. Neck supple. No JVD or thyromegaly LUNGS: Respirations even and unlabored. Lungs essentially clear to auscultation bilaterally. HEART: Regular rate and rhythm. S1 and S2 heard. ABDOMEN: Soft. Nondistended. Nontender. EXTREMITIES: Normal range of motion. No clubbing or cyanosis. Peripheral pulses intact. No lower extremity edema NEUROLOGIC: Awake and alert. Oriented x 3. ASSESSMENT: Near syncope Hypertension Hyperkalemia Daily alcohol use Nicotine dependence PLAN: Recommend abstinence from alcohol Smoking cessation recommended No further inpatient recommendations from a cardiac standpoint We will sign off Patient to follow up on an outpatient basis in 2-3 weeks. Nurse practitioner note has been reviewed by physician. Signing provider agrees with the documented findings, assessment, and plan of care. Objective - Vital Signs Vital signs: Vital Signs Temp 98.0 F 06/27/22 07:32 Pulse 85 06/27/22 08:08 Resp 18 06/27/22 08:08 BP 122/79 06/27/22 07:32 Pulse Ox 96 06/27/22 07:32 FiO2 Intake & Output 06/26/22 06/27/22 06/27/22 18:59 06:59 18:59 Other: Voiding Method Toilet Toilet Toilet # Voids 1 - Labs CBC & Chem 7: 06/25/22 10:52 06/26/22 07:15 Labs: Abnormal Lab Results - Last 24 Hours (Table) 06/26/22 Range/Units 07:15 Anion Gap 6.50 L (10.00-18.00) mmol/L
--- NOTE | 2022-06-27 10:40 | P.EPPROC ---
- EP Procedure Note Electrophysiology Procedure Note: Diagnosis Recurrent dizzy spells and presyncope Twelve-lead EKG shows sinus rhythm normal OR narrow QRS normal ST segments Tilt table test Baseline blood pressure 137/87 mmHg, Baseline heart rate 81 beats a minute Patient underwent tilt table test per protocol No significant change in heart rate and blood pressure mild increase in heart rate to 100 beats a minute No clear-cut evidence for orthostatic intolerance No evidence for neurocardiogenic syncope Impression Normal. EKG Normal heart rate and blood pressure response to upright tilting
--- NOTE | 2022-06-27 12:11 | P.PN ---
Subjective Progress Note Date: 06/27/22 Patient seen at bedside and he continues to feel at baseline. Denies any further episodes of feeling dizziness or presyncopal episodes. Objective - Vital Signs Vital signs: Vital Signs Temp 98.0 F 06/27/22 07:32 Pulse 85 06/27/22 08:08 Resp 18 06/27/22 08:08 BP 122/79 06/27/22 07:32 Pulse Ox 96 06/27/22 07:32 FiO2 Intake & Output 06/26/22 06/27/22 06/27/22 18:59 06:59 18:59 Other: Voiding Method Toilet Toilet Toilet # Voids 1 - Exam GENERAL: The patient is lying in bed and is not in acute distress. NEUROLOGICAL: Higher mental function: The patient is awake, alert, oriented to self, place and time. Patient is following commands. No aphasia and no neglect. Cranial nerves: The pupils are round, equal and reactive to light and accommod ation. Visual headley are full to confrontation throughout. Extraocular movement is rotatory nystagmus looking to right and left (old and was told due to eye issue). Facial sensation is normal to touch throughout. The facial strength is normal throughout. Hearing is normal bilaterally to hand rub. Tongue is midline and moved [id number] without any difficulty. No dysarthria is noted. Shoulder shrug is normal bilaterally. Motor: The strength is 5 over 5 throughout. Normal tone and bulk. 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 Cerebellum: Normal finger to nose bilaterally. Sensation: Sensation is normal to touch throughout. Reflexes (right/left) 1+ uppers while lowers are 2+. Plantars is mute over the left and right toe is amputated. SOME OF THE WORK-UP DURING THIS HOSPITAL VISIT CONSISTED OF: Carotid duplex was reported as less than 50% stenosis of bilateral carotid bifurcation. 2-D echo was reported as preserved left ventricle systolic function. Ejection fraction of 66 5%. No evidence of left atrial septal defect. Normal left atrial size. Carotid duplex is reported as less than 50% stenosis of bilateral carotid bifurcation. Routine EEG is normal. There is no focal slowing, epileptiform discharges or seizure on the EEG. MRI of the brain is reported as normal. I personally reviewed the MRI and I don't appreciate any acute or subacute ischemia or any mass effect. Tilt table test is reported as normal. - Labs CBC & Chem 7: 06/25/22 10:52 06/26/22 07:15 Assessment and Plan Assessment: Recurrent transient episodes of feeling lightheadedness, numbness of both hands left more than right, right foot numbness and feeling off for the past 10 days: Unknown exact etiology. Routine EEG is normal and MRI Brain is normal. Hypertension Alcohol use (drinks 6-8 beers daily) Tobacco use Plan: The patient continues to have symptoms recommend prolonged ambulatory EEG or even epilepsy monitoring unit to capture episodes to rule out possible underlying seizure. Currently the routine EEG and MRI the brain is a normal. Cardiology team is on board. Patient was counseled on alcohol and tobacco cessation. Started on thiamine 100mg daily and folic acid 1mg daily because of his alcohol use. Will defer the rest of medical management to primary team. Recommend patient to follow-up with neurologist as outpatient within 1-2 weeks as outpatient. The plan is discussed with patient and primary team. No additional neurological workup is needed and patient is clear for discharge from a neurologic perspective. Jose Cruz M.D. Neuro-Hospitalist Time with Patient: Less than 30
--- NOTE | 2022-06-27 15:56 | P.DS ---
Providers Date of admission: 06/25/22 13:59 Expected date of discharge: 06/27/22 Attending physician: Christiano Mendoza Consults: 06/25/22 13:58 Consult Physician Routine Consulting Provider: Jose Cruz Consult Reason/Comments: Dizziness Do you want consulting provider notified?: Yes Primary care physician: [facility] Course: Patient is a pleasant 42-year-old male came in with complaints of dizziness which is lightheadedness patient denied any room spinning. Patient had this lightheadedness on and off multiple episodes. Lightheadedness is not affected by position change but whenever he is lightheaded when he rests for 2 hours patient gets better. Patient the started having these symptoms 10 days ago had multiple ER visits and had no significant improvement. 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 Patient denied any shortness of breath patient was also complaining of tingling numbness in both hands as well as tingling in the right foot the symptoms started before his lightheadedness. Patient denied any focal weakness. Patient is complaining of chronic back pain which is bit worse than usual patient was also complaining of neck pain. Patient is concerned that his dizziness is limiting his regular work and his usual regular activities. Patient was started on lisinopril about 4 days ago because of uncontrolled hypertension patient has mildly elevated potassium to 5.3. 06/26/2022 Patient is seen and evaluated and follow-up with neurology following scheduled to undergo MRI and EEG. Plan is for tilt table test per cardiology with cardiology following closely. Recommend orthostatics and close monitoring for any signs of withdrawal. Patient reports he does drink 6-8 beers daily and will add CIWA protocol if needed. Patient currently not withdrawing. Patient with reports of dizziness that he feels is improved and has been up and walking around the room. Patient is tolerating diet with no reports of nausea or vomiting noted. Will await tilt table report. Patient initially scheduled for MRI although there is metal noted in the left leg and further investigation being done by radiology. Possible MRI this afternoon. Patient is afebrile and current orthostatics are negative. Patient denies any chest pain or palpitations. Blood pressure medication currently on hold. 06/27/2022: I assumed care of the patient from [facility] today. Patient to negative tilt table test. MRI has been negative. EEG negative. Discussed with Dr. Cruz from neurology. Patient okay to drive.. Patient had presyncope. Patient to follow-up with neurology outpatient. Patient advised against drinking alcohol. Drinks about 8 beers a few times a week. He'll follow up outpatient with neurology. Cleared by cardiology. Results discussed with patient. Discussion and discharge planning more than 35 minutes On examination: 98, 85, 18, 122.79, 96% room air Gen. appearance: Sitting at the edge of the bed, awake, comfortable Psychiatry: AO 3, mood affect normal Cardiovascular: First and second sound normal, no edema INVESTIGATIONS, reviewed in the clinical context: White count 10.7 hemoglobin 7.1 platelets 307 potassium 5.2 creatinine 0.8 Brain MRI: Unremarkable EEG: Negative for epilepsy Tilt table test: Unremarkable Carotid Doppler: Less than 50% stenosis bilateral carotid bifurcation. 2-D echocardiogram: EF 60-65%. Chest CT: Unremarkable Cervical and thoracic spine x-ray: Unremarkable. Mild DJD. Assessment and plan: -Presyncope. Cause unclear. Could be vasovagal. Patient does drink 8 beers at a go. -Essential Hypertension Blood pressure on the ventral control off lisinopril. DC the same. Follow blood pressure outpatient. -Chronic low back pain, cervical as well as thoracolumbar back pain with some radicular symptoms. -Nicotine use: Counseling was provided Nicotine patch -Alcohol use disorder Patient counseled Disposition: Home Plan - Discharge Summary Discharge Rx Participant: Yes New Discharge Prescriptions: New Folic Acid 1 mg PO DAILY #30 tab Famotidine [Pepcid] 20 mg PO BID #60 tablet Thiamine [Vitamin B-1] 100 mg PO DAILY #30 tab Discontinued lisinopriL [Zestril] 10 mg PO DAILY Discharge Medication List Famotidine [Pepcid] 20 mg PO BID #60 tablet 06/27/22 [Rx] Folic Acid 1 mg PO DAILY #30 tab 06/27/22 [Rx] Thiamine [Vitamin B-1] 100 mg PO DAILY #30 tab 06/27/22 [Rx] Follow up Appointment(s)/Referral(s): Kai Aguilera MD [STAFF PHYSICIAN] - 3 Weeks (Doctor will call with appointment time and date.) Jose F Vick MD [Primary Care Provider] - 07/03/22 2:30 pm Didier Tavarez MD [Medical Doctor] - 1 Week (Office closed at time of discharge. Please call to set up appointment.) Patient Instructions/Handouts: Near Syncope (DC)
== END 2022-06-27 12:39 | disposition home or self-care (01) | DRG 312 ==
LOC: EC 09:40 → 3SCARD 13:59 → 4SSUR 16:08
PROVIDERS: ADMIT Hospitalist; ATTEND Hospitalist
PROC: 4A10X4Z Monitoring of Central Nervous Electrical Activity, External Approach (ICD-10-PCS; 2022-06-26)
PROC: 4A0 Measurement and Monitoring, Physiological Systems, Measurement (ICD-10-PCS; principal; 2022-06-27)
DX: R55 Syncope and collapse (principal); R42 Dizziness and giddiness; R20.2 Paresthesia of skin; E78.5 Hyperlipidemia, unspecified; I10 Essential (primary) hypertension; I07.1 Rheumatic tricuspid insufficiency; G89.29 Other chronic pain; M54.50 Low back pain, unspecified; M54.6 Pain in thoracic spine; F17.210 Nicotine dependence, cigarettes, uncomplicated; Z71.6 Tobacco abuse counseling; Z79.899 Other long term (current) drug therapy; E87.5 Hyperkalemia; F10.10 Alcohol abuse, uncomplicated; Z71.41 Alcohol abuse counseling and surveillance of alcoholic
CPT/HCPCS: 36415; 70553; 71046; 71275; 72052; 72100; 80048; 80053; 83735; 83880; 84484; 85025; 85379; 85610; 85730; 93005; 93306; 93660; 93880; 95816

== ENCOUNTER → 2022-08-02 | Outpatient (CLI) | payer BC ==
[2022-08-02 08:14] VITALS: BP 116/77; PULSE 103; RESP 16; TEMP 97.7
--- NOTE | 2022-08-02 14:22 | P.PAINPG ---
Objective - Vital Signs Vital signs: Intake & Output 08/01/22 08/02/22 08/02/22 18:59 06:59 18:59 Weight 86.183 kg PQRS Measure Charge Sheet Comment: HISTORY OF PRESENT ILLNESS: 42 yr old male w sister at side as a referral from Dr Bhatia presents today w severe and chronic LBP secondary to spondylolisthesis, spondylosis and facet arthropathy without myelopathy for evaluation. Pt states pain level is at 5/10 in intensity, constant, localized in the mid to lower lumbar spine, stiff/ tight in character w shooting pain towards the BL hips. Pain is provoked by sitting/standing for periods of 20 minutes or more. Pain is alleviated by PT x1 session in May 2022, chiropractic treatments weekly x 3-4 yrs, heat, ice, meds (Ibu), topicals, sitting, repositioning and rest. PMH: Hypertension PSH: R Partial Foot Amputation in childhood SH: Daily tobacco use, Occasional ETOH use, No illicit drug use. FH: CAD All: NKDA Meds: See list REVIEW OF ORGAN SYSTEMS: CONSTITUTIONAL: No fevers or chills. No recent weight loss. NEUROLOGICAL: + numbness and tingling along the distal extremities. No seizure disorders or headaches. MUSCULOSKELETAL: + pain PSYCHIATRIC: Denies current depression or suicidal thoughts. Physical Examinations : Constitutional : Cooperative , not in acute distress . Neurologic : Cranial nerve II to XII intact. No focal neurological deficits. Psychiatric : alert & oriented x 3. Matching mood & appropriate affect. Judgment & insight intact. Musculoskeletal : Cervical Spine Motor strength in the deltoid and biceps: Normal right side. Normal Left side Motor strength biceps and the wrist extensors: Normal right side . Normal left side Motor strength in the triceps muscle: Normal right side. Normal left side Deep tendon reflexes: Normal at the biceps. Normal at Brachioradialis. Normal at triceps Vertebral body tenderness to deep palpation over Cervical facet loading test: positive bilaterally Spurling test: positive bilaterally Neck distraction test: positive bilaterally Rebel sign: positive bilaterally Lumbar spine Motor strength lower extremities ,thigh and legs 5/5 Right side , 5/5 Left side Deep tendon reflexes : Normal Knee Jerk. Normal Ankle Jerk Vertebral body tenderness over Lumbar facet Loading Test: positive Right / positive Left TTP over BL L4-L5, L5-S1 facets Range of motion of the lumbar spine Flexion 30 degrees, extension 10 degrees Straight Leg Raise test: Left/ Right positive at degree Bj test: positive right / positive left. Severe tenderness over the Sacroiliac joint on the Right / Left sides Gaenslen test: positive bilaterally Seated flexion test: positive bilaterally. Sacral spine : Severe tenderness over the Sacroiliac joint: right side / left side Range of motion: Flexion of the lumbar spine <60 degrees Range of motion: Extension of the lumbar spine <20 degrees Gaenslen's Test positive Jimy's Test positive Bj test: positive right side / left side Thigh Thrust Test Sacral Thrust Test Imaging: X-rays of the lumbar spine from 06/25/22 reviewed MRI contrast of the lumbar spine from 07/19/22 reviewed Assessment/ Plan : Lumbar spondylolisthesis, Lumbar spondylosis Recommendation of BL facet blocks of the medial branches L4-L5, L5-S1 #1. May need a series of injections, up until RFA, for optimal pain relief. Risks, benefits of procedure discussed and patient verbalized understanding. Admits to aspirin or anti- coagulant use or medical history of diabetes. Protocol for discontinuation/ continuation of medications vinod procedure discussed. Recommendation of [place] 5/325mg #18 NR. Use, side effects and adverse reactions discussed. Safe storage discussed. Pt verbalized understanding. All questions answered. I have spent greater than 30 minutes on patient care today. Dr Acharya was available by phone for the evaluation of this patient. The time was used to review the medical records including relevant urine studies and Prescription history (MAPs), review of the available imaging, evaluation and examination of the patient, coordination of care with the medical staff and if applicable referring physicians, as well as creation of the medical record - Pain Location Bilateral Lower Back Non-Pharmacological Interventions: Heat, Ice, Inactivity, Physical Therapy, Position/Reposition, Sitting Pharmacological Interventions: PRN Medication, Topical Medication Home Medications: Ambulatory Orders Famotidine [Pepcid] 20 mg PO BID #60 tablet 06/27/22 Folic Acid 1 mg PO DAILY #30 tab 06/27/22 Nicotine 21Mg/24Hr Patch [Habitrol] 1 each TRANSDERM DAILY #14 patch 06/27/22 Thiamine [Vitamin B-1] 100 mg PO DAILY #30 tab 06/27/22 Aspirin [[place] Aspirin EC] 81 mg PO DAILY 08/02/22 HYDROcodone/APAP 5-325MG [[place] 5-325] 1 tab PO Q4HR PRN 3 Days #18 tab 08/02/22 Controlled Substance Measures - Controlled Substance Measures Is patient prescribed a controlled substance at discharge?: Yes When asked, does pt state using other controlled substances?: No If prescribed controlled substance>3 days was MAPS reviewed?: Prescribed <3 Days If Rx opioid, was Start Talking consent form obtained?: Yes If opioid is for acute pain is fill amount 7 days or less?: Yes Was information provided regarding opioid addiction?: Yes
== END ==
LOC: PNWHC3 07:40
PROVIDERS: ATTEND Specialist
DX: M47.816 Spondylosis without myelopathy or radiculopathy, lumbar region (principal); M43.16 Spondylolisthesis, lumbar region; Z79.01 Long term (current) use of anticoagulants; E11.9 Type 2 diabetes mellitus without complications
CPT/HCPCS: 99211

== ENCOUNTER 2022-09-06 10:33 | Emergency (ER) | payer BC ==
--- NOTE | 2022-09-06 10:59 | ED ---
General Adult HPI <Elva Dominguez - Last Filed: 09/06/22 10:50> - General Source: patient, family, RN notes reviewed, old records reviewed <Ernie Dorado - Last Filed: 09/06/22 22:29> - General Stated complaint: arm numbness, chest pain Time Seen by Provider: 09/06/22 12:30 - History of Present Illness Initial comments: 42 year old male presents to the emergency department for L arm numbness that has been "coming and going" for weeks. He reports the last week the numbness has become more consistent. He describes radiating pain into his left should and the left side of his chest. He describes his chest pain as sharp that comes and goes at rest, but it is relieved with "working hard." He reports an upcoming Stress test with Dr. De Santiago next week. He has not tried anything for his symptoms. He denies a known cardiac history. He denies recent trauma or previous injury. Denies fever, palpitations, cough, shortness of breath, nausea, vomiting, abdominal pain. He reports to smoking cigarettes occasionally. (Elva Dominguez) Patient is a 42-year-old male with past medical history remarkable for hypertension, chronic dizziness, chronic bilateral upper extremity numbness, some chronic left shoulder pain who presents to the department with a three-day history of somewhat worsening left shoulder pain. States he also has shooting of numbness down his left arm as well as some pain down his left arm and towards the armpit. Denies any anterior wall chest pain. Symptoms seem to be mostly chronic but patient presents with family over concern for his pain and they will make showed sinus heart. Has been following up outpatient with neurology and has a cardiology appointment next week for a Holter monitor. He also has an upcoming stress test next week. Patient was initially seen by a mid-level provider in the waiting room and I do agree with their HPI except for the radiation the pain, as when I discussed with the patient seems to be more towards left armpit and not the left chest as discussed above. No known p alliative or provocative factors. Not tried anything for his symptoms. Currently is resting comfortably. Has noticed the pain is left shoulder is worse with movement. Presents for further evaluation at this time. Denies any fevers, chills, cough, sick contacts.Patient's only acute symptoms are somewhat worsening left shoulder pain as well as shooting numbness down the left arm which he states has been more frequent over the last 3 days. No known provocative factors. Remainder of her symptoms are chronic and currently are not present, this includes the lightheadedness that has been worked up outpatient with neurology and cardiology. (Ernie Dorado) - Related Data Home Medications Medication Instructions Recorded Confirmed Aspirin [Ronan Aspirin EC] 81 mg PO DAILY 08/02/22 09/06/22 lisinopriL [Prinivil] 20 mg PO DAILY 09/06/22 09/06/22 Allergies Allergy/AdvReac Type Severity Reaction Status Date / Time No Known Allergies Allergy Verified 09/06/22 14:09 Review of Systems ROS Other: All systems not noted in ROS Statement are negative. <Elva Dominguez - Last Filed: 09/06/22 10:50> ROS Other: All systems not noted in ROS Statement are negative. <Ernie Dorado - Last Filed: 09/06/22 22:29> ROS Statement: Those systems with pertinent positive or pertinent negative responses have been documented in the HPI. Review of Systems: CONST: Denies fever EYES: Denies blurry vision ENT: Denies nasal congestion C/V: Denies Chest pain RESP: Denies shortness of breath GI: Denies abdominal pain : Denies dysuria SKIN: Denies rash. MSK: Endorses left shoulder pain NEURO: Denies headache General: Appears in no acute distress. (Ernie Dorado) Past Medical History Past Medical History: Hypertension History of Any Multi-Drug Resistant Organisms: None Reported Past Surgical History: Orthopedic Surgery Smoking Status: Current some day smoker <Elva Dominguez - Last Filed: 09/06/22 10:50> General Exam <Ernie oDrado - Last Filed: 09/06/22 22:29> - General Exam Comments Initial Comments: HEAD: Normal with no signs of head trauma. EYES: PERRLA, EOMI, conjunctiva normal, no discharge. Pupils are 2 mm and equal bilaterally. ENT: Hearing grossly intact, normal oropharynx. RESPIRATORY: Clear breath sounds bilaterally. No wheezes, rales, or rhonchi. C/V: Regular rate and rhythm. S1 and S2 auscultated, no edema, peripheral pulses 2+ and intact throughout ABD: Abd is soft, nontender, nondistended EXT: Normal range of motion. No obvious deformity. Tenderness to palpation over the anterior aspect of the left shoulder at the before meals joint. Patie vianney's left shoulder pain is reproducible on palpation. It appears to radiate down into his pectoral muscle as well as towards his axilla. No obvious deformities or injuries. No midline cervical, thoracic, lumbar spine tenderness to palpation. Minimal paraspinal muscle tenderness palpation of the left. SKIN: No rashes or lesions observed on exposed skin. NEURO: Alert and oriented 4. No obvious sensory strength deficits appreciated in the bilateral upper extremities or lower extremities. Cranial nerves II through XII are intact. Patiently ambulates without difficulty. (Catherine merrill,Ernie) Course Vital Signs 09/06/22 09/06/22 09/06/22 10:51 12:00 14:48 Temperature 98 F 97.5 F L 98.6 F Pulse Rate 92 73 95 Respiratory 18 16 16 Rate Blood Pressure 129/83 113/77 121/85 O2 Sat by Pulse 98 96 97 Oximetry Medical Decision Making - Lab Data Result diagrams: 09/06/22 11:57 09/06/22 11:57 - EKG Data -: EKG Interpreted by Me <Ernie Dorado - Last Filed: 09/06/22 22:29> - Medical Decision Making Was pt. sent in by a medical professional or institution (RAYNA Duff, MATERIALS MANAGEMENT CLERK, urgent care, hospital, or usp...) When possible be specific @ -No Did you speak to anyone other than the patient for history (EMS, parent, family, police, friend...)? What history was obtained from this source @ -Yes, patient's family members helped with recent past medical history Did you review nursing and triage notes (agree or disagree)? Why? @ -I reviewed and agree with nursing and triage notes Were old charts reviewed (outside hosp., previous admission, EMS record, old EKG, old radiological studies, urgent care reports/EKG's, usp records)? Report findings @ -Yes, prior charts, EKG Differential Diagnosis (chest pain, altered mental status, abdominal pain women, abdominal pain men, vaginal bleeding, weakness, fever, dyspnea, syncope, headache, dizziness, GI bleed, back pain, seizure, CVA, palpatations, mental health)? @ -Differential Chest Pain: Stable Angina, Unstable Angina, STEMI, NSTEMI Aortic Dissection, Pneumothorax, Musculoskeletal, Esophageal Spasm GERD, Cholecystitis, Pancreatitis, Zoster, this is not meant to be an all-inclusive list. EKG interpreted by me (3pts min.). @ -As above X-rays interpreted by me (1pt min.). @ -Chest x-ray revealed no acute cardiopulmonary process. Left shoulder x-ray revealed signs of degenerative changes including the before meals joint. CT interpreted by me (1pt min.). @ -CT cervical spine without contrast reveals findings concerning for degenerative changes and possible areas for impingement obtain the patient's radiculopathy type symptoms. U/S interpreted by me (1pt. min.). @ -None done What testing was considered but not performed or refused? (CT, X-rays, U/S, labs)? Why? @ -None What meds were considered but not given or refused? Why? @ -None Did you discuss the management of the patient with other professionals (professionals i.e. , PA, MATERIALS MANAGEMENT CLERK, lab, RT, psych nurse, group social worker, efficiency clerk, teacher, bank compliance officer, assisted living care manager)? Give summary @ -No Was smoking cessation discussed for >3mins.? @ -No Was critical care preformed (if so, how long)? @ -No Were there social determinants of health that impacted care today? How? (Homelessness, low income, unemployed, alcoholism, drug addiction, trans portation, low edu. Level, literacy, decrease access to med. care, group home, rehab)? @ -No Was there de-escalation of care discussed even if they declined (Discuss DNR or withdrawal of care, Hospice)? DNR status @ -No What co-morbidities impacted this encounter? (DM, HTN, Smoking, COPD, CAD, Cancer, CVA, ARF, Chemo, Hep., AIDS, mental health diagnosis, sleep apnea, morbid obesity)? @ -None Was patient admitted / discharged? Hospital course, mention meds given and route, prescriptions, significant lab abnormalities, going to OR and other pertinent info. @ -Based on the patient's presentation and physical exam, patient presents complaining of left arm pain and shoulder pain with left axilla pain. Not rule out cardiac etiology at this time. Has been present for multiple days. We will obtain cardiac workup. Also obtain CT cervical spine as well as x-rays of left shoulder. Patient was in agreement this plan. He will receive aspirin and Toradol for analgesia. Vital signs within acceptable limits. EKG showed no signs of acute ischemia. Imaging was unremarkable for acute process but there are degenerative changes and left shoulder as well as cervical spine which could be indicative of radiculopathy sources. Chest x-ray shows no acute cardiopulmonary process. Laboratory studies are remarkable for a troponin that is undetectable. No other findings on labs. I discussed results of the patient. He was in agreement with the results. We discussed these likely expressing radicular type symptoms as well as musculoskeletal left shoulder pain. He'll be discharged home with instructions follow-up with his physicians, including cardiology next week. Patient was in agreement this plan. Strict return precautions were discussed. I instructed the patient to follow up with their PCP in the next 1-3 days. I explained that the patient should return to the emergency department if they experience any worsening symptoms. Strict return precautions were discussed with the patient. The patient expressed understanding of these instructions. I answered all questions that the patient had. The patient was discharged home in good condition with their prescriptions and follow up information. Undiagnosed new problem with uncertain prognosis? @ -No Drug Therapy requiring intensive monitoring for toxicity (Heparin, Nitro, Insulin, Cardizem)? @ -No Were any procedures done? @ -No Diagnosis/symptom? @ -Left shoulder pain Acute, or Chronic, or Acute on Chronic? @ -Acute on chronic Uncomplicated (without systemic symptoms) or Complicated (systemic symptoms)? @ -UnComplicated Side effects of treatment? @ -No Exacerbation, Progression, or Severe Exacerbation? @ -No Poses a threat to life or bodily function? How? (Chest pain, [place], [place], pneumonia, PE, COPD, DKA, ARF, appy, cholecystitis, CVA, Diverticulitis, Homicidal, Suicidal, threat to staff... and all critical care pts) @ -No Diagnosis/symptom? @ -Radiculopathy, cervical Acute, or Chronic, or Acute on Chronic? @ -Acute on chronic Uncomplicated (without systemic symptoms) or Complicated (systemic symptoms)? @ -Uncomplicated Side effects of treatment? @ -none Exacerbation, Progression, or Severe Exacerbation] @ -no Poses a threat to life or bodily function? @ -no (Ernie Dorado) - Lab Data Lab Results 09/06/22 09/06/22 09/06/22 Range/Units 11:57 11:57 11:57 WBC 9.8 (3.8-10.6) k/uL RBC 4.90 (4.30-5.90) m/uL Hgb 15.9 (13.0-17.5) gm/dL Hct 46.3 (39.0-53.0) % MCV 94.5 (80.0-100.0) fL MCH 32.5 (25.0-35.0) pg MCHC 34.4 (31.0-37.0) g/dL RDW 11.6 (11.5-15.5) % Plt Count 275 (150-450) k/uL MPV 8.6 Neutrophils % 78 % Lymphocytes % 16 % Monocytes % 4 % Eosinophils % 0 % Basophils % 0 % Neutrophils # 7.7 (1.3-7.7) k/uL Lymphocytes # 1.5 (1.0-4.8) k/uL Monocytes # 0.4 (0-1.0) k/uL Eosinophils # 0.0 (0-0.7) k/uL Basophils # 0.0 (0-0.2) k/uL PT 9.8 (9.0-12.0) sec INR 0.9 (<1.2) APTT 24.8 (22.0-30.0) sec Sodium 138 (137-145) mmol/L Potassium 4.5 (3.5-5.1) mmol/L Chloride 101 (98-107) mmol/L Carbon Dioxide 26 (22-30) mmol/L Anion Gap 11 mmol/L BUN 12 (9-20) mg/dL Creatinine 0.68 (0.66-1.25) mg/dL Est GFR (CKD-EPI)AfAm >90 (>60 ml/min/1.73 sqM) Est GFR (CKD-EPI)NonAf >90 (>60 ml/min/1.73 sqM) Glucose 105 H (74-99) mg/dL Calcium 9.7 (8.4-10.2) mg/dL Magnesium 2.1 (1.6-2.3) mg/dL Total Bilirubin 0.8 (0.2-1.3) mg/dL AST 36 (17-59) U/L ALT 35 (4-49) U/L Alkaline Phosphatase 96 (38-126) U/L Troponin I (0.000-0.034) ng/mL Total Protein 8.1 (6.3-8.2) g/dL Albumin 4.8 (3.5-5.0) g/dL 09/06/22 Range/Units 11:57 WBC (3.8-10.6) k/uL RBC (4.30-5.90) m/uL Hgb (13.0-17.5) gm/dL Hct (39.0-53.0) % MCV (80.0-100.0) fL MCH (25.0-35.0) pg MCHC (31.0-37.0) g/dL RDW (11.5-15.5) % Plt Count (150-450) k/uL MPV Neutrophils % % Lymphocytes % % Monocytes % % Eosinophils % % Basophils % % Neutrophils # (1.3-7.7) k/uL Lymphocytes # (1.0-4.8) k/uL Monocytes # (0-1.0) k/uL Eosinophils # (0-0.7) k/uL Basophils # (0-0.2) k/uL PT (9.0-12.0) sec INR (<1.2) APTT (22.0-30.0) sec Sodium (137-145) mmol/L Potassium (3.5-5.1) mmol/L Chloride (98-107) mmol/L Carbon Dioxide (22-30) mmol/L Anion Gap mmol/L BUN (9-20) mg/dL Creatinine (0.66-1.25) mg/dL Est GFR (CKD-EPI)AfAm (>60 ml/min/1.73 sqM) Est GFR (CKD-EPI)NonAf (>60 ml/min/1.73 sqM) Glucose (74-99) mg/dL Calcium (8.4-10.2) mg/dL Magnesium (1.6-2.3) mg/dL Total Bilirubin (0.2-1.3) mg/dL AST (17-59) U/L ALT (4-49) U/L Alkaline Phosphatase (38-126) U/L Troponin I <0.012 (0.000-0.034) ng/mL Total Protein (6.3-8.2) g/dL Albumin (3.5-5.0) g/dL - EKG Data EKG Comments: 12-lead Electrocardiogram Interpretation Note EKG was reviewed and interpreted by myself. 12-lead ECG performed at 1157 is interpreted by me as revealing normal sinus rhythm at a rate of 72 beats per minute. Jackson is normal. CA interval is 179 ms, QRS duration is 86 ms, QTc is 369 ms. There were no ST or T wave abnormalities to suggest myocardial ischemia or injury. R wave progression across the precordium was satisfactory. By my interpretation this EKG is non-diagnostic for acute ischemia. When compared with EKG from 06/25/2022, no significant change. T-wave inversion seen in lead III are more T wave flattening at this time. (Ernie Dorado) Disposition <Elva Dominguez - Last Filed: 09/06/22 10:50> Is patient prescribed a controlled substance at d/c from ED?: No Time of Disposition: 14:10 <Ernie Dorado - Last Filed: 09/06/22 22:29> Clinical Impression: Shoulder pain, Radiculopathy Disposition: HOME SELF-CARE Condition: Good Instructions (If sedation given, give patient instructions): Shoulder Sprain (ED), Cervical Radiculopathy (ED) Referrals: Jose F Vick MD [Primary Care Provider] - 1-2 days
[2022-09-06] MEDS ORDERED: ASPIRIN 81 MG PO STA (12:29)
[2022-09-06] MEDS ORDERED: KETOROLAC 15 MG/ML 1 ML VIAL IVP STA (12:30)
[2022-09-06 12:56] VITALS: RESP 16
--- NOTE | 2022-09-06 13:16 | CT ---
EXAMINATION TYPE: CT cervical spine wo con DATE OF EXAM: 09/06/2022 COMPARISON: HISTORY: left arm numbness, no injury CT DLP: 531.7 mGycm Automated exposure control for dose reduction was used. TECHNIQUE: CT scan of the cervical spine is obtained without contrast, axial images are obtained, sa gittal and coronal reformatted images are also reviewed. FINDINGS: Cervical spine is visualized in its entirety from C1 through upper thoracic levels, demonst rates satisfactory alignment without evidence of acute fracture or dislocation. Prevertebral soft ti ssue appears within normal limits. The C1-C2 articulation is within normal limits on the coronal molly ges. Neural foramina appear to be patent. Assessment of spinal canal limited due to resolution and tract. If concern for disc herniation correlate with MRI. Apical posterior pleural based thickening nonspecific. There is uncovertebral joint hypertrophy on the right seen C4-5 resulting in right-sided foraminal pr otrusion IMPRESSION: 1. No acute fracture. 2. Uncovertebral joint hypertrophy in the right at C4-5 with mild right foraminal encroachment. If co ncern for disc herniation or canal stenosis correlate with MRI.
--- NOTE | 2022-09-06 13:17 | XR ---
EXAMINATION TYPE: XR chest 2V DATE OF EXAM: 09/06/2022 COMPARISON: 06/25/2022 TECHNIQUE: PA and lateral views submitted. HISTORY: Pain FINDINGS: The lungs are clear and there is no pneumothorax, pleural effusion, or focal pneumonia. IMPRESSION: 1. No acute process.
--- NOTE | 2022-09-06 13:18 | XR ---
EXAMINATION TYPE: XR shoulder complete LT DATE OF EXAM: 09/06/2022 COMPARISON: NONE HISTORY: Pain TECHNIQUE: Three views are submitted. FINDINGS: The osseous structures are intact. There is no acute fracture or dislocation. Mild AC joint arthropa thy. IMPRESSION: 1. Mild AC joint arthropathy. If concern for rotator cuff injury correlate with MRI
[2022-09-06 13:35] LABS: Basophils % (A) 0 %; Eosinophils % (A) 0 %; HCT 46.3 % (39.0-53.0); HGB 15.9 gm/dL (13.0-17.5); Lymphocytes # (A) 1.5 k/uL (1.0-4.8); Lymphocytes % (A) 16 %; MCH 32.5 pg (25.0-35.0); MCHC 34.4 g/dL (31.0-37.0); MCV 94.5 fL (80.0-100.0); Mean Platelet Volume 8.6; Monocytes # (A) 0.4 k/uL (0-1.0); Monocytes % (A) 4 %; Neutrophils # (A) 7.7 k/uL (1.3-7.7); Neutrophils % (A) 78 %; Platelet Count 275 k/uL (150-450); RDW 11.6 % (11.5-15.5); WBC 9.8 k/uL (3.8-10.6)
[2022-09-06 13:41] LABS: ALT 35 U/L (4-49); AST 36 U/L (17-59); African American GFR (CKD) >90 (>60 ml/min/1.73 sqM); Albumin 4.8 g/dL (3.5-5.0); Alkaline Phosphatase 96 U/L (38-126); Anion Gap 11 mmol/L; Blood Urea Nitrogen 12 mg/dL (9-20); Calcium 9.7 mg/dL (8.4-10.2); Carbon Dioxide 26 mmol/L (22-30); Chloride 101 mmol/L (98-107); Glucose 105 mg/dL (74-99); Magnesium 2.1 mg/dL (1.6-2.3); Non-African American GFR(CKD) >90 (>60 ml/min/1.73 sqM); Potassium 4.5 mmol/L (3.5-5.1); Sodium 138 mmol/L (137-145); Total Bilirubin 0.8 mg/dL (0.2-1.3); Total Protein 8.1 g/dL (6.3-8.2)
[2022-09-06 13:51] LABS: INR 0.9 (<1.2); Partial Thromboplastin Time 24.8 sec (22.0-30.0); Prothrombin Time 9.8 sec (9.0-12.0)
[2022-09-06 14:49] VITALS: BP 121/85; PULSE 95; TEMP 98.6
== END 2022-09-06 14:50 | disposition home or self-care (01) ==
LOC: EC 10:33
DX: M54.12 Radiculopathy, cervical region (principal); M25.511 Pain in right shoulder; I10 Essential (primary) hypertension; F17.200 Nicotine dependence, unspecified, uncomplicated; Z79.82 Long term (current) use of aspirin
CPT/HCPCS: 36415; 93005; 80053; 83735; 84484; 85025; 85610; 85730; 73030; 71046; 72125; 99285; 96374; J1885